=== PATIENT | male | born 1995 | race African-American/Black ===

== ENCOUNTER 2019-01-14 16:34 | Emergency (ER) | payer OTHER ==
[~2019-01-14] VITALS: Ht 185.4 cm; Wt 67.1 kg
[2019-01-14] MEDS ORDERED: NAPROSYN500 MG PO ×2 (17:56→18:00)
[2019-01-14] MEDS ORDERED: NORFLEX100 MG PO ×2 (17:56→18:00)
[2019-01-14 18:10] VITALS: BP 115/61
== END 2019-01-14 18:17 | disposition home or self-care (01) ==
LOC: ER 16:34
DX: S39.012A Strain of muscle, fascia and tendon of lower back, initial encounter (principal); F17.210 Nicotine dependence, cigarettes, uncomplicated; V89.2XXA Person injured in unspecified motor-vehicle accident, traffic, initial encounter; Y92.89 Other specified places as the place of occurrence of the external cause; Y93.89 Activity, other specified; Y99.8 Other external cause status

== ENCOUNTER 2019-08-22 11:03 | Emergency (ER) | payer OTHER ==
[~2019-08-22] VITALS: Ht 182.9 cm; Wt 67.1 kg
[~2019-08-22 11:03] MED LIST: NAPROSYN500 MG PO; NORFLEX100 MG PO
[2019-08-22] MEDS ORDERED: PROAIR HFA8.5 GM INH (11:09)
[2019-08-22] MEDS ORDERED: FLOVENT HFA12 G1 INH (11:09)
[2019-08-22 11:56] VITALS: BP 110/59
[2019-08-22] MEDS ORDERED: ONDANSETRON ODT8 MG PO (11:59)
[2019-08-22] MEDS ORDERED: NAPROSYN500 MG PO (11:59)
== END 2019-08-22 12:12 | disposition home or self-care (01) ==
LOC: ER 11:03
DX: F11.23 Opioid dependence with withdrawal (principal); M54.5 Low back pain; R11.2 Nausea with vomiting, unspecified; F17.210 Nicotine dependence, cigarettes, uncomplicated